=== PATIENT | male | born 1950 | race Caucasian/White ===

== ENCOUNTER → 2016-11-28 | Outpatient (CLI) | payer OTHER ==
--- NOTE | 2016-11-28 13:22 | CT ---
EXAMINATION TYPE: CT brain wo/w con DATE OF EXAM: 11/28/2016 1:17 PM COMPARISON: NONE HISTORY: Right sided posterior BECK for [address] DLP: 2059.8 mGycm, Automated exposure control for dose reduction was used. CONTRAST: Patient injected with 100 mL of Omnipaque 300. CT of the brain is performed utilizing 3 mm thick sections through the posterior fossa and 3 mm thick sections through the remaining calvarium. Study is performed within 24 hours of arrival to the hospital. No abnormal hyperdensity is present to suggest an acute intracranial hemorrhage. No mass lesion is evident. No acute infarcts are evident. Ventricles and sulci are appropriate for the patient age. No abnormal enhancement is evident. Minimal mucosal thickening may be within ethmoid air cells. Paranasal sinuses and mastoid air cells within the [id number] are clear. IMPRESSIONS: 1. Normal CT brain.
== END | disposition home or self-care (01) ==
LOC: RADCTMAIN 12:45
PROVIDERS: ATTEND Family Medicine
DX: R51 Headache (principal)
CPT/HCPCS: 70470; Q9967

== ENCOUNTER → 2018-08-03 | Outpatient (CLI) | payer MEDICARE ==
[2018-08-03 12:36] LABS: Blood Urea Nitrogen 16 mg/dL (9-20)
--- NOTE | 2018-08-04 20:25 | CT ---
EXAMINATION TYPE: CT abdomen pelvis w con DATE OF EXAM: 08/03/2018 COMPARISON: 11/19/2017 HISTORY: 67-year-old male bilateral back pain that wraps around to front of pelvis TECHNIQUE: Contiguous axial scanning of the abdomen and pelvis following administration of 100 ml Iso yennifer 300 IV contrast. Delayed images through the kidneys and coronal/sagittal reconstructions perform ed. CT DLP: 1726.8 mGycm Automated exposure control for dose reduction was used. FINDINGS: Heart normal size without pericardial effusion. Lung bases clear without pleural effusion. Small hiatal hernia. Liver remains enlarged at 19.6 cm measured on coronal series. Stable subcentimeter hypodensity periph eral right lower lobe, likely a tiny benign cyst. No biliary ductal dilatation. Incidentally, there i s a diverticulum of the second portion of the duodenum projecting into the pancreatic head region. Prominent caliber to the main portal vein and the splenic vein of uncertain clinical significance. Th sahil measure 2.0 and 1.4 cm, respectively. Enlargement of the portal venous system can be seen in sett ing of portal venous hypertension and clinical correlation is recommended. Gallbladder, adrenal glands, kidneys appear within normal limits. Spleen is borderline enlarged at 14 .0 cm measured on sagittal series. Redemonstrated mild masha mesentery centrally in the abdomen with some associated nonenlarged and bor derline enlarged lymph nodes measuring up to 5 mm. No dilated small bowel, free fluid, or free air. Normal appendix. Scattered mild diverticular change throughout the colon particularly in the sigmoid colon. No pericolonic inflammatory change. Bladder urine distended. Prostate gland measures 5.0 cm wide. Mildly patulous bilateral inguinal donovan ls. No abnormal fluid collection in the pelvis. A mildly enlarged 1 cm left external iliac chain lymp h node is unchanged from prior likely chronic postinflammatory. Bones: Mild degenerative changes at the hips and SI joints. Posterior lumbar interbody fusion changes at L4-L5 with corresponding laminectomies. Anterior bridging endplate spondylosis visualized lower t horacic spine. IMPRESSION: 1. STABLE MILD MASHA MESENTERY FROM 8 MONTHS AGO WITH SOME ASSOCIATED PROMINENT MESENTERIC LYMPH NODE S. STABILITY ARGUES AGAINST A NEOPLASTIC PROCESS. CORRELATE FOR POSSIBLE CHRONIC INFLAMMATORY ETIOLOG Y SUCH MESENTERIC PANNICULITIS. 2. LARGE CALIBER TO THE MAIN PORTAL AND SPLENIC VEINS OF UNCERTAIN CLINICAL SIGNIFICANCE. THIS FINDIN G IS STABLE IN RETROSPECT AND MAY BE SEEN IN THE SETTING OF PORTAL VENOUS HYPERTENSION. 3. STABLE HEPATOMEGALY (19.6 CM), SMALL HIATAL HERNIA, AND MILD GENERALIZED DIVERTICULOSIS, GREATEST IN THE SIGMOID COLON. STABLE MILD PROSTATOMEGALY (5.0 CM WIDE).
== END | disposition home or self-care (01) ==
LOC: RADCTMAIN 11:40
PROVIDERS: ATTEND Family Medicine
DX: K57.30 Diverticulosis of large intestine without perforation or abscess without bleeding (principal); K44.9 Diaphragmatic hernia without obstruction or gangrene; N40.0 Benign prostatic hyperplasia without lower urinary tract symptoms
CPT/HCPCS: 82565; 84520; 74177; 36415; Q9967

== ENCOUNTER → 2020-01-18 | Outpatient (CLI) | payer MEDICARE ==
--- NOTE | 2020-01-18 14:31 | CT ---
EXAMINATION TYPE: CT abdomen pelvis wo con DATE OF EXAM: 01/18/2020 COMPARISON: 08/03/2018 INDICATION: bilateral low back pain DLP: 798.3 mGycm, Automated exposure control for dose reduction was used. CONTRAST: 0 mL of Isovue 300. Study performed with Oral Contrast TECHNIQUE: Axial images were obtained from above the diaphragm to the pubic rami in the axial plane a t 5 mm thick sections. Reconstructed images are reviewed on the computer in the coronal plane. FINDINGS: Limited CT sections are obtained the lung bases. The lung bases are clear. Small hiatal hernia is p resent. CT ABDOMEN: Liver: Normal Spleen: Normal Pancreas: Normal Adrenal glands: The adrenal glands are normal. Gallbladder: Normal Kidneys: No masses are evident. No hydronephrosis is present. No cysts are present. No renal stone s are identified. Aorta: Vascular calcification is within the aorta. Inferior vena cava: Normal. CT PELVIS: Loops of bowel within the abdomen and pelvis are normal. There are loops of bowel which are incom pletely distended or lack oral contrast limiting their evaluation. Appendix: Normal as visualized. Urinary bladder: Normal. Genitourinary structures: Prostate is prominent. Osseous structures: No suspicious lytic or sclerotic lesions. Postsurgical changes are through the lo wer lumbar spine. IMPRESSIONS: 1. No renal or ureteral lithiasis evident. 2. Degenerative changes and postsurgical changes within the lower lumbar spine
== END | disposition home or self-care (01) ==
LOC: RADCTMAIN 09:36
PROVIDERS: ATTEND Internal Medicine
DX: R10.9 Unspecified abdominal pain (principal)
CPT/HCPCS: 74176

== ENCOUNTER → 2021-02-09 | Outpatient (CLI) | payer MEDICARE ==
[2021-02-09 15:46] LABS: Basophils # (A) 0.01 X 10*3/uL (0.00-0.10); Basophils % (A) 0.3 %; Eosinophils # (A) 0.03 X 10*3/uL (0.04-0.35); Eosinophils % (A) 0.9 %; HCT 39.1 % (39.6-50.0); HGB 13.1 g/dL (13.0-17.0); Lymphocytes # (A) 0.74 X 10*3/uL (0.90-5.00); Lymphocytes % (A) 22.8 %; MCH 32.6 pg (27.0-32.0); MCHC 33.5 g/dL (32.0-37.0); MCV 97.3 fL (80.0-97.0); Mean Platelet Volume 9.9 fL (9.5-12.2); Monocytes # (A) 0.43 X 10*3/uL (0.20-1.00); Monocytes % (A) 13.2 %; Neutrophils # (A) 2.03 X 10*3/uL (1.80-7.70); Neutrophils % (A) 62.5 %; Platelet Count 143 X 10*3/uL (140-440); RBC 4.02 X 10*6/uL (4.40-5.60); RDW 13.5 % (11.5-14.5); WBC 3.25 X 10*3/uL (4.50-10.00)
[2021-02-09 18:48] LABS: African American GFR (CKD) 101.4 (60.0-200.0); Albumin 4.2 g/dL (3.80-4.90); Albumin/Globulin Ratio 1.35 (1.60-3.17); Anion Gap 6.7 mmol/L (4.00-12.00); BUN/Creat Ratio 16.67 Ratio (12.00-20.00); Calcium 8.6 mg/dL (8.7-10.3); Carbon Dioxide 25.3 mmol/L (21.6-31.8); Chol/HDL Ratio 4.64; Globulin 3.1 g/dL (1.6-3.3); LDL Cholesterol,Calculated 123.8 mg/dL (0.0-131.0); Non-African American GFR(CKD) 87.5 (60.0-200.0); Potassium 4.2 mmol/L (3.5-5.5); Total Bilirubin 0.8 mg/dL (0.3-1.2); Total Protein 7.3 g/dL (6.2-8.2); VLDL Calculation 18.2 mg/dL (5.00-40.00)
[2021-02-09 18:56] LABS: PSA Annual Screen 1.9 ng/mL (0.0-4.0)
== END | disposition home or self-care (01) ==
LOC: LABWHC1 07:55
PROVIDERS: ATTEND Family Medicine
DX: Z00.00 Encounter for general adult medical examination without abnormal findings (principal); Z12.5 Encounter for screening for malignant neoplasm of prostate; K92.1 Melena; N40.0 Benign prostatic hyperplasia without lower urinary tract symptoms; Z87.891 Personal history of nicotine dependence
CPT/HCPCS: 80061; 80053; 85025; 82272; 36415; G0103

== ENCOUNTER → 2023-03-20 | Outpatient (CLI) | payer MEDICARE | END | disposition home or self-care (01) | LOC: LABWHC1 11:10 | PROVIDERS: ATTEND Family Medicine | DX: R79.89 Other specified abnormal findings of blood chemistry (principal) | CPT/HCPCS: 36415; 82728; 83540 ==

== ENCOUNTER → 2023-03-20 | Outpatient (CLI) | payer MEDICARE ==
--- NOTE | 2023-03-20 11:45 | XR ---
EXAMINATION TYPE: XR abdomen 1V DATE OF EXAM: 03/20/2023 11:41 AM INDICATION: Patient age:Male; 72 years old; Reason for study: R10.9 abdominal pain; COMPARISON: None 01/18/2020. TECHNIQUE: One radiographic view of the abdomen was obtained. FINDINGS: Surgical changes to L4-L5 and discectomy at L4-L5. Hardware appears intact. The bowel gas p attern is nonspecific without dilated loops of small or large bowel. There is no evidence for organom egaly or pneumoperitoneum. The osseous structures are intact. No abnormal calcifications are presen t. Fecal material and gas are demonstrated throughout the colon and rectum. IMPRESSION: 1. Nonspecific bowel gas pattern without radiographic evidence for acute process. 2. Post surgical changes with hardware intact.
== END | disposition home or self-care (01) ==
LOC: RADXRMAIN 11:15
PROVIDERS: ATTEND Family Medicine
DX: R10.9 Unspecified abdominal pain (principal)
CPT/HCPCS: 74018

== ENCOUNTER → 2023-04-23 | Outpatient (CLI) | payer MEDICARE ==
[2023-04-23 16:38] LABS: Albumin 4.3 d/dL (3.8-4.9); Protein, Total 7.3 d/dL (6.2-8.2)
[2023-04-23 16:54] LABS: T4, Free (Free Thyroxine) 1.24 ng/dL (0.80-1.80)
[2023-04-24 18:39] LABS: Gamma Globulin 1.74 d/dL (0.70-1.50)
== END | disposition home or self-care (01) ==
LOC: LABWHC1 11:48
PROVIDERS: ATTEND Psychiatry & Neurology Neurology
DX: R20.2 Paresthesia of skin (principal); G62.9 Polyneuropathy, unspecified
CPT/HCPCS: 36415; 82607; 84165; 84207; 84425; 84439; 84443; 85652

== ENCOUNTER → 2023-05-02 | Outpatient (CLI) | payer MEDICARE ==
[2023-05-02 21:42] LABS: Albumin 4.3 d/dL (3.8-4.9); Immunoglobulin M 65.8 mg/dL (40.0-280.0); Protein, Total 7.3 d/dL (6.2-8.2)
== END | disposition home or self-care (01) ==
LOC: LABWHC1 15:14
PROVIDERS: ATTEND Psychiatry & Neurology Neurology
DX: D89.2 Hypergammaglobulinemia, unspecified (principal)
CPT/HCPCS: 36415; 84165; 86334

== ENCOUNTER → 2023-06-23 | Outpatient (CLI) | payer MEDICARE ==
--- NOTE | 2023-06-26 10:45 | MR ---
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 The patient was then given intravenous contrast and multi planar, T1 fat-saturation images wer e obtained. IV Contrast: 10.5 cc Gadavist FINDINGS: The noland-white junctions, ventricular system, basal cisterns appear unremarkable. Diffusion-weighted imaging shows no evidence of restricted diffusion to suggest acute/subacute infarct. Intracranial ar terial flow voids are maintained. Midline structures show no abnormality. Minimal scattered foci of h igh T2 signal intensity are seen within the periventricular white matter. The susceptibility weighted images do not reveal any evidence for micro-hemorrhage. After administration of gadolinium, no abnor mal enhancement is seen. The right trigeminal nerve has a at least 2 vessels crossing in close proximity to the nerve series 7 01 image 54 and 702 image 33, series 703 image 38. The bone marrow signal is within normal limits. Paranasal sinuses and mastoid air cells: No significant paranasal sinus disease. Visualized orbits: Orbital contents are intact. IMPRESSION: 1. There are 2 vessels crossing the right trigeminal nerve which could be the source of patient's sym ptoms. 2. No evidence of intracranial mass, acute/subacute infarct, or abnormal enhancement. 3. Minimal scattered white matter changes, likely related to small vessel ischemic disease.
== END | disposition home or self-care (01) ==
LOC: RADMRIMAIN 18:54
PROVIDERS: ATTEND Psychiatry & Neurology Neurology
DX: C71.9 Malignant neoplasm of brain, unspecified (principal); R90.82 White matter disease, unspecified; R20.0 Anesthesia of skin; R20.2 Paresthesia of skin
CPT/HCPCS: 70553; A9585

== ENCOUNTER → 2023-07-16 | Outpatient (CLI) | payer MEDICARE ==
--- NOTE | 2023-07-17 07:52 | US ---
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 No significant stenosis lower extremity arterial system
== END | disposition home or self-care (01) ==
LOC: RADUSWWP 09:01
PROVIDERS: ATTEND Family Medicine
DX: I83.893 Varicose veins of bilateral lower extremities with other complications (principal); R29.898 Other symptoms and signs involving the musculoskeletal system
CPT/HCPCS: 93922

== ENCOUNTER → 2024-07-30 | Day surgery (SDC) | payer MEDICARE ==
--- NOTE | 2024-07-29 18:40 | HP ---
HISTORY AND PHYSICAL CHIEF COMPLAINT: Persistent fluid in both ears. HISTORY OF PRESENT ILLNESS: This patient is a pleasant 73-year-old male, who was originally seen in my office complaining of having a plugged sensation in both ears. The patient states that symptoms have been going on for approximately 3 or 4 months and that, it may have been initiated by . He has a history of chronic nasal drainage and currently is on Flonase and Zyrtec. At exam that he was seen in my office, he stated that when he talks, it sounded as if his head was stuck in a book. Clinical examination of his ears revealed chronic bilateral serous otitis media. Clinical examination of his ears revealed chronic bilateral serous otitis media, so-called glue ear. The placed patient was placed on a Z-Tariq and Decadron. He was seen back in my office approximately 2 weeks later, and at that time, had not noticed any improvement. Clinical examination revealed that he still had fluid in both middle ear spaces. It was therefore recommended that he undergo a bilateral myringotomy with insertion of ventilation tubes under IV sedation. PAST MEDICAL HISTORY: Reveals that he has no allergies to medications. MEDICATIONS: His current medications include tamsulosin and finasteride. REVIEW OF SYSTEMS: Positive respect to the urological system and that the patient is known to have hypertrophy of the prostate gland. Remainder of review of systems is unremarkable. PREVIOUS SURGERIES: Include lower back surgery, arthroscopic knee surgery, colonoscopy, and arthroscopic shoulder surgery. PHYSICAL EXAMINATION: GENERAL: This patient is a pleasant 73-year-old male, who was alert and cooperative. HEENT: The patient is normocephalic. Tympanic membranes are dull bilaterally with fluid in both middle ear spaces. Pupils are equal, round, and reactive to light and accommodation. Extraocular movements within normal limits. Intranasal examination reveals severe septal deviation with compensatory hypertrophy of the inferior turbinates and a moderate amount of clear mucus on the mucous membranes and draining down the posterior pharynx. Examination of oropharynx, cranial nerves 2 through 12 and remainder of the head and neck exam are within normal limits. CHEST/CARDIOVASCULAR: Both lung buchanan are clear to percussion and auscultation. The patient is in regular sinus rhythm. S1 and S2 are present without evidence of any murmurs, S3s, or S4s. Peripheral pulses are bilaterally symmetrical. ABDOMEN: There is no evidence any masses, megaly, or tenderness. The abdomen is soft. SKIN: Unremarkable. MUSCULOSKELETAL: Unremarkable. NEUROLOGICAL: Unremarkable. RECTAL: This should be printed. The rectal exam is deferred at this time because the patient has this done on a regular basis at his family physician's office. The remainder of physical exam is unremarkable. IMPRESSION: Chronic bilateral serous otitis media. PLAN: The patient is scheduled to undergo a bilateral myringotomy with insertion of ventilation tubes under IV sedation with MAC in the a.m. Attention, RNs in the pre-surgical area: I have not ordered any pre-surgical prophylactic antibiotics for this patient. If the Pharmacy Department sends any pre- surgical prophylactic antibiotics to the pre-surgical area for this patient, then that order should be cancelled, and the medication should be returned to the Pharmacy Department. Also, please make sure that the patient's account is credited appropriately. I have discussed the risks, benefits and alternative therapies for the above-mentioned procedure and for both sedation/analgesia as well as necessary blood product administration, if indicated, as they pertain to this patient. The patient has indicated his understanding and acceptance of the risks and procedures discussed. MMODL / IJN: [id number] /
[~2024-07-30] MED LIST: LIDOCAINE 1% INJ 10MG/ML (20 ML MDV) ONE; MIDAZOLAM 2 MG/2 ML VIAL ONE; PROPOFOL 10 MG/ML 20 ML VIAL IV ONE; Pre Op ABX Message 1 EACH MISC MISCELLANE ONE; fentaNYL (PF) 50 MCG/ML 2 ML AMP ONE
[2024-07-30] MEDS: LACTATED RINGERS 1,000 ML IV SCH (09:06)
[2024-07-30] MEDS: ONDANSETRON 4 MG/2 ML VIAL IVP STA (09:13)
[2024-07-30] MEDS: DEXAMETHASONE SOD PHOSPHATE 4 MG/ML 1 ML VIAL IVP STA (09:14)
[2024-07-30] MEDS: IV FLUID CONTINUATION 1,000 ML IV ONE ×2 (09:15→10:52)
[2024-07-30 11:00] VITALS: TEMP 97.4
[2024-07-30 12:28] VITALS: RESP 14
[2024-07-30 12:37] VITALS: BP 144/82; PULSE 55
--- NOTE | 2024-08-02 09:09 | OP ---
OPERATIVE REPORT DATE OF SERVICE : 07/30/2024 PREOPERATIVE DIAGNOSIS: Chronic bilateral serous otitis media. POSTOPERATIVE DIAGNOSIS: Chronic bilateral serous otitis media. ANESTHESIA: General. OPERATIVE PROCEDURE: Bilateral myringotomy with insertion of plastic Elias-Bobbin ventilation tubes. COMPLICATIONS: None. PROCEDURE: The patient was placed on the operating table in the supine position after uneventful induction and IV sedation, satisfactory general anesthesia was obtained. Next, the operating microscope was brought into position over the patient's right ear where after insertion of a #3 aural speculum, the external canal was cleansed of all wax and debris. The myringotomy knife was used to make an incision in the anterior inferior quadrant of the right tympanic membrane. The middle ear space was suctioned free of all fluid and a 1.1 mm Elias-Bobbin ventilation tube was inserted without any difficulty. Attention was then directed to the left ear where the same procedure was carried out using the operating microscope, #3 aural speculum, the external auditory canal was cleansed of all wax and debris. The myringotomy knife was used to make an incision in the anterior inferior quadrant of the left tympanic membrane and the middle ear space was suctioned free of all fluid. A 1.1 mm Elias-Bobbin ventilation tube was inserted without any difficulty. At this point, the procedure was terminated. There were no intraoperative complications. The patient tolerated the procedure well and was returned to the Recovery Room in satisfactory condition. [id number] / IJN: [id number] /
== END ==
LOC: OR 08:25
PROVIDERS: ATTEND Otolaryngology
DX: H65.23 Chronic serous otitis media, bilateral (principal); F17.210 Nicotine dependence, cigarettes, uncomplicated; K21.9 Gastro-esophageal reflux disease without esophagitis; N40.0 Benign prostatic hyperplasia without lower urinary tract symptoms; Z79.899 Other long term (current) drug therapy
CPT/HCPCS: 69436; J2250; J0171; J1100; J2405; J2003; J3010; J2704